=== PATIENT | female | born 1975 | race Caucasian/White ===

== ENCOUNTER 2025-02-14 09:48 | Day surgery (SDC) | payer OTHER ==
[2025-02-12 09:56] VITALS: BP 112/78
[~2025-02-14] VITALS: Ht 177.8 cm; Wt 82.3 kg
[~2025-02-14 09:48] MED LIST: ACYCLOVIR800 MG PO; ADRENOID CAPSU1 EACH PO; AMOXICILLIN500 MG PO; IBLOOD GLUCOSE TEST STRIP 1 EA TEST VI PRN; KLOR-CON M2020 MEQ PO; LACTATED RINGER'S 1,000 ML IV SCH; LIDOCAINE HCL 1% 5 ML SDV INJ ONE; MAGNESIUM OXID400 M1 PO; MIDAZOLAM HCL 5 MG/5 ML VIAL IV PRN; PRILOSEC OTC20 MG PO; VITAMIN D31 ML MISC; ZARXIO300 MCG/0. SUB-Q; [UNRECOGNIZED DRUG - OTHER] PO; fentaNYL citrate 100 MCG/2 ML VIAL IV PRN
[2025-02-14 10:57] LABS: BASOPHILS 0 % (0.1-1.2); BASOPHILS, ABSOLUTE 0 K/uL (0.01-0.08); EOSINOPHILS 0 % (0.7-5.8); EOSINOPHILS, ABSOLUTE 0 K/uL (0.04-0.36); HEMATOCRIT 28.8 % (34.1-44.9); HEMOGLOBIN 9.6 g/dL (11.2-15.7); LYMPHOCYTES 27.3 % (19.3-51.7); LYMPHOCYTES, ABSOLUTE 0.35 K/uL (1.18-3.74); MCH 34.8 PG (25.6-32.2); MCHC 33.3 g/dL (32.2-35.5); MCV 104.3 fL (79.4-94.8); MONOCYTES 35.2 % (4.7-12.5); MONOCYTES, ABSOLUTE 0.45 K/uL (0.24-0.86); NEUTROPHILS 30.5 % (34.0-71.1); NEUTROPHILS, ABSOLUTE 0.39 K/uL (1.56-6.13); RBC 2.76 M/uL (3.93-5.22)
[2025-02-14 11:07] LABS: PLATELET COUNT 11 K/uL (182-369)
[2025-02-14] MEDS ORDERED: DOPTELET20 MG PO (11:07)
[2025-02-14 11:09] VITALS: BP 100/82
[2025-02-14 11:33] LABS: SMEAR REVIEW BLOOD SEE COMMENTS
[2025-02-14] MEDS ORDERED: LIDOCAINE HCL 2% 5 ML SDV ONE (11:39)
[2025-02-14] MEDS ORDERED: propofoL 200 MG/20 ML VIAL ONE (11:39)
--- NOTE | 2025-02-14 12:26 | NUR ---
02/14/25 1226 Carlee Rob 1212 PT LAYING PRONE, RESPONDS TO STIMULI. PT ROLLED OVER ONTO HER BACK ASKING FOR COFFEE AND CRACKERS TOLERATES WELL.
[2025-02-14 12:32] VITALS: BP 104/79
--- NOTE | 2025-02-21 14:18 | PATH ---
[facility] [address] [facility] [place], [place] [address] Signed SPECIMEN(S): A BONE MARROW - LEFT CORE SPECIMEN(S): B BONE MARROW - ASPIRATION SPECIMEN(S): C FLOW CYTOMETRY, BM EDTA CLINICAL HISTORY: CC82.99 (follicular lymphoma unspecified extranodal and solid organ sites). 49-year-old female with relapsed follicular lymphoma and treatment related MDS. Assess MRD follicular lymphoma. Assess MDS. DIAGNOSIS SUMMARY: Peripheral blood - Pancytopenia with macrocytic RBC indices. - Absolute neutrophil count 390/ul. - 1% circulating blasts with atypical monocytes. Bone marrow biopsy and aspiration: - Normocellular marrow, 40%, with 11% myeloblasts. - Trilineage hematopoiesis with trilineage dyspoiesis consistent with myelodysplastic neoplasm with high blasts. - Increased marrow iron stores. No ring sideroblasts are observed. - Atypical B-cell population by flow cytometry. No atypical B-cell population is identified by morphology or immunohistochemistry staining. - See diagnostic comment. DIAGNOSTIC COMMENT: The findings are supportive of a myelodysplastic neoplasm with high blasts (11%). Trilineage dyspoiesis is identified. Approximately 11% myeloblasts are identified. Pending studies include chromosome analysis, FISH panel for MDS, and NGS CMML/MDS panel. A history of follicular lymphoma is noted. Flow cytometry revealed a 6% population of kappa restricted B-cells. This is suspicious for marrow involvement by a B-cell lymphoma. However, no atypical B-cell population is detected by morphology or immunohistochemistry. This apparent discrepancy might be secondary to sampling issues. Evaluation for adenopathy with possible biopsy if present, might be useful. HISTORICAL SUMMARY: 49 yo female with no prior hematology case history in the [employer] database. Reportedly, she has a history of follicular lymphoma and treatment related MDS. This bone marrow is for re-staging. PATIENT NAME: HALLIE VELARDE PATHOLOGY DATE OF : 71 REPORT #: [id number] PHYSICIAN: ERNESTO PATHOLOGY PCP: FREDY WOOD MD REPORT IS CONFIDENTIAL AND NOT TO BE RELEASED WITHOUT AUTHORIZATION [facility] [address] [place], [place] [address] Signed PERIPHERAL BLOOD: HEMOGRAM (02/14/2025): WBC 1.28 K/ul, RBC 2.75 M/ul, HGB 9.6 g/dl, HCT 28.8%, MCV 104.3 fl, MCH 34.8 pg, MCHC 33.3 g/dl, RDW 16.2%, PLT 11 K/ul. Absolute neutrophil count 390/ul. AUTOMATED DIFFERENTIAL COUNT: Blasts 1%, Neutrophils 36.5%, lymphocytes 27.3%, monocytes 35.2%, eosinophils 0%, basophils 0%. The red blood cells are macrocytic and hyperchromic with mild aniso-poikilocytosis. The neutrophils are decreased in number with mild dyspoiesis. Atypical monocytes are present. Lymphocytes are composed of small mature appearing forms. Platelets are decreased in number with no platelet clumping or RBC microangiopathic effect identified. Focal (approximately 1%) blasts are identified. BONE MARROW: ASPIRATE SMEARS/TOUCH IMPRINT: The aspirate smears are adequate for evaluation. Scattered erythroid precursors show adequate maturation with essentially normal morphology. The myeloid precursors show full maturation with unremarkable morphology. There is no increase in blasts. Megakaryocytes are identified with a normal morphology. BONE MARROW DIFFERENTIAL COUNT (300 cells): Blasts 11%. promyelocytes less than 1%, myelocytes 9%, metamyelocytes/bands/segs 13%, erythroid precursors 38%, lymphocytes 13%, monocytes 14%, eosinophils 1%, plasma cells 1%. M:E ratio: 1.2:1 BONE MARROW CORE BIOPSY/ASPIRATE CLOT/CELL BLOCK: The aspirate clot section is primarily composed of blood with rare small marrow spicules. The core biopsy is adequate for evaluation. The core biopsy demonstrates unremarkable trabecular bone. The cellularity is normal for age, estimated at 40%. The erythroid precursors have megaloblastoid maturation with dyspoiesis. The myeloid precursors have a left maturational shift with focal dyspoiesis. Blasts are increased. Megakaryocytes appear decreased in number with dyspoiesis by morphology. No granulomas or foreign malignant cells are detected. SPECIAL STAINS (with adequate controls): - iron (aspirate smear): Increased marrow iron stores are noted by Prussian Blue staining. No ring sideroblasts are identified. - iron (cell block): Increased marrow iron stores are noted in a limited specimen (focal rare marrow spicules). - reticulin (block A1): MF-1 reticulin fibrosis. - PAS (block A1): Decreased megakaryocytes with dyspoiesis. PATIENT NAME: HALLIE VELARDE PATHOLOGY DATE OF : 71 REPORT #: [id number] PHYSICIAN: ERNESTO PATHOLOGY PCP: FREDY WOOD MD REPORT IS CONFIDENTIAL AND NOT TO BE RELEASED WITHOUT AUTHORIZATION [address] [address] Signed IMMUNOHISTOCHEMISTRY STAINS (performed on block A1 with adequate controls). - PAX5: Less than 1% - CD3: 5% with increased marking in lymphoid aggregates. - CD10: Negative in lymphoid aggregate - CD5: Similar to CD3 marking. - CD34: 4% - CD117: 4% FLOW CYTOMETRY: Bone marrow, flow cytometry: - 8.2% myeloblasts. - 6% kappa restricted B-cell population. - See comment. COMMENT: Increased myeloblasts are detected, approximately 8.2% by flow cytometry. These blasts are positive for CD34, CD117, CD13, CD33, and HLA-Dr and are negative for T and B-cell markers as well as negative for CD56 and CD10. In addition, a population (approximately 6%) of kappa restricted B-cells are noted. These B-cells are positive for CD19 and CD10 with no significant expression of CD5, CD20, or CD23. A prior reported history of follicular lymphoma with treatment related MDS is noted. Correlation with bone marrow findings is required. FLOW CYTOMETRY ANALYSIS: FLOW DIFFERENTIAL (% Total CD45 vs. SSC gating): Myeloid 33%; Lymphoid 20%; Monocyte 17%; Dim CD45/Blast: 8.2%. Cell Count: 1.1 x 10*4/uL. POPULATION ANALYSIS: BLASTS: Analysis of the dim CD45 gate demonstrates 8.2% blasts expressing CD45 DIM, CD34 DIM-MOD, CD117 DIM, CD13 DIM, CD33 DIM, CD38 DIM, and HLA-DR MOD while negative for CD56, CD2, CD3, CD4, CD5, CD7, CD10, CD19, CD20, and all other antigens as tested. LYMPHOID CELLS: The lymphocyte gate comprises 20% of total events and includes 61% T-cells with a CD4:CD8 ratio of 0.6:1. A subset T-cell population is detected (10% of lymphocytes, 2% of total events) demonstrating co-expression of CD3 and CD56. A kappa-restricted B-cell population is detected (29% of lymphocytes, 6% of total events) expressing CD45 dimmer MOD, CD19 DIM, CD10 DIM, CD38 DIM, and KAPPA DIM while negative for CD20, CD5, and CD23. The remainders are NK-cells. MYELOID CELLS: The myeloid population comprises 33% of the total events. An immature myeloid population is detected (7.7% of total events) expressing CD45 PATIENT NAME: HALLIE VELARDE PATHOLOGY DATE OF : 71 REPORT #: [id number] PHYSICIAN: ERNESTO MCKENNA PCP: FREDY WOOD MD REPORT IS CONFIDENTIAL AND NOT TO BE RELEASED WITHOUT AUTHORIZATION [facility] [address] [place], [place] [address] Signed DIM, CD117 DIM, CD15 (variable, partial), HLA-DR (variable, partial), CD13 DIM, and CD33 DIM (partial) while negative for CD34, CD14, CD16, and CD56. Decreased SSC, decreased CD10 expression and atypical maturation in the CD13 vs CD16 plot are observed on the overall myeloid population. MONOCYTES: The monocyte population comprises 17% of the total events. Decreased CD14, increased CD15 and some increased CD16 are observed. PLASMA CELLS: 0.1% plasma cells are detected in the screening gate neg-dimCD45/CD38. Plasma cells are CD45 dim and positive for CD19. ANTIBODIES USED: KAPPA, LAMBDA, CD20, CD10, CD19, CD23, CD38, CD16, CD56, CD8, CD5, CD2, CD4, CD7, CD3, CD14, CD33, CD13, HLADR, CD34, CD117, CD15, CD45: TOTAL ANTIBODIES USED: 23. JNB FINAL DIAGNOSIS OF FLOW CYTOMETRY PERFORMED BY: Joshua Maria MD, Feb 16 2025 1:04PM CYTOGENETICS: Chromosome analysis is pending. FISH ANALYSIS: A FISH probe for IgH/BCL2 is pending. A FISH panel for MDS is pending. MOLECULAR / PCR: A [employer] CMML/MDS NGS panel is pending. GROSS DESCRIPTION: Two specimens are received in two containers A. The specimen, labeled and designated "Praneeth Velarde, bone marrow-left core," is received in formalin and consists of a singular portion of love-red bone measuring 1.5 x 0.1 x 0.1 cm. The specimen is submitted for decalcification in [employer] prior to processing. Entirely submitted in cassette (A1). B. The specimen, labeled and designated "Praneeth Velarde, bone marrow-aspiration," is received in formalin and consists of a singular portion of clotted blood measuring 1.3 x 0.9 x 0.5 cm. The specimen is sectioned and submitted entirely in cassettes (B1-B2). AB (under the direct supervision of a pathologist) The Gross Description was prepared using a voice recognition system. The report was reviewed for accuracy; however, sound-alike word errors, addition and/or deletions may occur. If there is any PATIENT NAME: HALLIE VELARDE PATHOLOGY DATE OF : 71 REPORT #: [id number] PHYSICIAN: ERNESTO PATHOLOGY PCP: FREDY WOOD MD REPORT IS CONFIDENTIAL AND NOT TO BE RELEASED WITHOUT AUTHORIZATION [address] [address] Signed question about this report, please contact Client Services. ADDITIONAL NOTES: Immunohistochemical and/or in situ hybridization studies if performed in this case included appropriate positive controls that reacted as expected. This test was developed and its performance characteristics determined by [facility]. It has not been cleared or approved by the U.S. Food and Drug Administration. The FDA has determined that such clearance or approval is not necessary. This test is used for clinical purposes. It should not be regarded as investigational or for research. [facility] is certified under the Clinical Laboratory Improvement Amendments of 1988 (CLIA) as qualified to perform high complexity clinical laboratory testing. In this case, certain antibodies were performed by both immunohistochemistry and flow cytometry analysis because flow cytometry analysis did not fully explain all the light microscopic findings. Immunohistochemistry aided in the analysis. Both methods are deemed medically necessary in this case. This test was developed and its performance characteristics determined by [facility]. It has not been cleared or approved by the US Food and Drug Administration. The FDA does not require this test to go through premarket FDA review. This test is used for clinical purposes. It should not be regarded as investigational or for research. This laboratory is certified under the Clinical Laboratory Improvement Amendments (CLIA) as qualified to perform high complexity clinical laboratory testing. PERFORMING LABORATORY: The technical preparation of flow cytometry was performed by [facility], [address] [place] [id number] (CLIA#:� [id number]). Professional interpretation was performed by [facility] - [address] [id number] (CLIA#: [id number]). Technical component was performed by [facility], [address] [place] [address] (CLIA# [id number]). Professional interpretation was performed by [facility], [address] [place] [id number] (CLIA#: [id number]). IMAGES: PATIENT NAME: HALLIE VELARDE PATHOLOGY DATE OF : 71 REPORT #: [id number] PHYSICIAN: ERNESTO PATHOLOGY PCP: FREDY WOOD MD REPORT IS CONFIDENTIAL AND NOT TO BE RELEASED WITHOUT AUTHORIZATION [address] [place] [address] Signed A: [id number] A: [id number] Diagnostician: Joshua Maria MD Pathologist Electronically Signed 02/21/2025 Copies: ~ PATIENT NAME: HALLIE VELARDE PATHOLOGY DATE OF : 71 REPORT #: [id number] PHYSICIAN: ERNESTO PATHOLOGY PCP: FREDY WOOD MD REPORT IS CONFIDENTIAL AND NOT TO BE RELEASED WITHOUT AUTHORIZATION
== END 2025-02-14 12:45 | disposition home or self-care (01) ==
LOC: DS 09:48
PROVIDERS: ATTEND Specialist
PROC: 07DR0ZX Extraction of Iliac Bone Marrow, Open Approach, Diagnostic (ICD-10-PCS; principal; 2025-02-14 12:00)
DX: D46.9 Myelodysplastic syndrome, unspecified (principal); C82.98 Follicular lymphoma, unspecified, lymph nodes of multiple sites; Z87.891 Personal history of nicotine dependence; Z88.8 Allergy status to other drugs, medicaments and biological substances; Z79.899 Other long term (current) drug therapy
CPT/HCPCS: 01112; 36415; 85025; 85060; J2003; J2704; J7121

== ENCOUNTER 2025-07-09 09:31 | Emergency (ER) | payer OTHER ==
[~2025-07-09] VITALS: Ht 175.3 cm; Wt 84.2 kg
[~2025-07-09 09:31] MED LIST changes: +DOPTELET20 MG PO; -IBLOOD GLUCOSE TEST STRIP 1 EA TEST VI PRN; -LACTATED RINGER'S 1,000 ML IV SCH; -LIDOCAINE HCL 1% 5 ML SDV INJ ONE; -MIDAZOLAM HCL 5 MG/5 ML VIAL IV PRN; -fentaNYL citrate 100 MCG/2 ML VIAL IV PRN
[2025-07-09] MEDS ORDERED: SODIUM CHLORIDE 0.9% 1,000 ML IV PRN ×3 (09:45→15:30)
[2025-07-09] MEDS ORDERED: PROGRAF0.5 MG PO (09:53)
[2025-07-09] MEDS ORDERED: MAG-OXIDE200 MG PO (09:54)
[2025-07-09] MEDS ORDERED: HUMALOG KW200 UNIT/1 SUB-Q (09:54)
[2025-07-09 09:55] LABS: MCH 39.4 PG (25.6-32.2); MCHC 36.1 g/dL (32.2-35.5); MCV 109.1 fL (79.4-94.8); RBC 2.08 M/uL (3.93-5.22)
[2025-07-09] MEDS ORDERED: PILOCARPINE HCL5 MG PO (09:55)
[2025-07-09] MEDS ORDERED: BENZONATATE200 MG PO (09:55)
[2025-07-09] MEDS ORDERED: SUDOGEST30 MG PO (09:55)
[2025-07-09] MEDS ORDERED: POSACONAZOLE100 MG PO (09:55)
[2025-07-09] MEDS ORDERED: PREDNISONE20 MG PO (09:55)
[2025-07-09] MEDS ORDERED: ATIVAN0.5 MG PO (09:56)
[2025-07-09] MEDS ORDERED: PREVYMIS480 MG PO (09:56)
[2025-07-09] MEDS ORDERED: JAKAFI10 MG PO (09:56)
[2025-07-09] MEDS ORDERED: POTASSIUM CHLO20 ME2 PO (09:57)
[2025-07-09] MEDS ORDERED: COMPAZINE25 MG PR (09:58)
[2025-07-09] MEDS ORDERED: LOMOTIL TABLET1 EACH PO (09:58)
[2025-07-09] MEDS ORDERED: BACTRIM 400-801 EACH PO (09:58)
[2025-07-09] MEDS ORDERED: ACYCLOVIR800 MG PO (09:59)
[2025-07-09] MEDS ORDERED: ALLERGY RELIEF10 M5 PO (09:59)
[2025-07-09] MEDS ORDERED: VITAMIN D325 MCG PO (10:00)
[2025-07-09] MEDS ORDERED: TYLENOL325 MG PO (10:00)
[2025-07-09 10:11] LABS: ALT (SGPT) 48.0 U/L (14-59); AST (SGOT) 21.0 U/L (15-37); GLOMERULAR FILTRATION RATE,EST 78.0 mL/min (>60); PROTEIN, TOTAL 5.6 g/dL (6.4-8.2); UREA NITROGEN 22.0 mg/dL (7-18)
[2025-07-09 10:14] LABS: LACTIC ACID, BLOOD 2.0 mmol/L (0.4-2.0)
[2025-07-09] MEDS ORDERED: VANCOMYCIN HCL IV ONE (10:15)
[2025-07-09] MEDS ORDERED: CEFEPIME HCL 2 GM in SODIUM CHLORIDE 0.9% 100 ML IV ONE (10:15)
[2025-07-09] MEDS ORDERED: SODIUM CHLORIDE 0.9% 500 ML IV PRN (10:15)
[2025-07-09] MEDS ORDERED: DEXTROSE 5% IV ONE (10:15)
[2025-07-09] MEDS ORDERED: VANCOMYCIN HCL 2,000 MG in DEXTROSE 5% 500 ML IV ONE (10:30)
[2025-07-09 10:35] LABS: BANDS, MANUAL DIFF 9; BASOPHILS, MANUAL DIFF 0; EOSINOPHILS, MANUAL DIFF 0; LYMPHOCYTES, MANUAL DIFF 12; MONOCYTES, MANUAL DIFF 2; NEUTROPHILS, MANUAL DIFF 77
[2025-07-09 11:38] LABS: INFLUENZA B NAA NEGATIVE (NEGATIVE); RESPIRATORY SYNCYTIAL VIR NAA NEGATIVE (NEGATIVE)
[2025-07-09 11:58] LABS: LACTIC ACID, BLOOD 1.5 mmol/L (0.4-2.0)
[2025-07-09] MEDS ORDERED: PROCHLORPERAZINE EDISYLATE 10 MG/2 ML VIAL IV ONE (12:15)
[2025-07-09] MEDS ORDERED: ACETAMINOPHEN 500 MG TAB PO ONE (12:15)
[2025-07-09 13:03] LABS: BLOOD/HGB, URINE NEGATIVE (Negative); KETONE, URINE NEGATIVE (Negative); LEUK ESTERASE, URINE TRACE (negative); NITRITE, URINE NEGATIVE (negative)
[2025-07-09 13:11] LABS: BACTERIA, URINE NONE SEEN /hpf (negative); CASTS, URINE NONE SEEN \\lpf; CRYSTALS, URINE NONE SEEN (0-1+); EPITHELIAL CELLS, URINE SQUAMOUS 1+ /lpf (0-1+); REFLEX CULTURE, URINE No (No)
[2025-07-09] MEDS ORDERED: DEXAMETHASONE SOD PHOS 10 MG/ML VIAL IV ONE (14:15)
[2025-07-09] MEDS ORDERED: NOREPINEPHRINE BITARTRATE 250 ML IV SCH (14:45)
[2025-07-09] MEDS ORDERED: REMDESIVIR 200 MG in SODIUM CHLORIDE 0.9% 210 ML IV ONE (15:15)
[2025-07-09 16:47] VITALS: BP 128/68
[2025-07-10 16:40] LABS: TACROLIMUS BY HPLC-MS/MS 5.1 ng/mL (())
--- NOTE | 2025-07-11 07:38 | EKG ---
[facility] [facility] [address] [facility] [place] [address] Signed Sinus tachycardia Nonspecific ST and T wave abnormality Abnormal ECG When compared with ECG of 06-FEB-2025 07:11, Vent. rate has increased BY 46 BPM Confirmed by Robyn Melendez DO ([id number]) on 07/11/2025 7:38:21 AM Electronically Signed By: ROBYN MELENDEZ DO 07/11/25 0738 PATIENT NAME: HALLIE VELARDE Electrocardiogram DATE OF : 71 PHYSICIAN: ROBYN MELENDEZ DO REPORT #: [id number] REPORT IS CONFIDENTIAL AND NOT TO BE RELEASED WITHOUT AUTHORIZATION
== END 2025-07-09 16:30 | disposition short-term general hospital (02) ==
LOC: ED 09:31
PROVIDERS: Emergency Medicine
DX: U07.1 COVID-19 (principal); Z88.5 Allergy status to narcotic agent; Z88.8 Allergy status to other drugs, medicaments and biological substances; Z79.4 Long term (current) use of insulin; Z79.899 Other long term (current) drug therapy
CPT/HCPCS: 36415; 71045; 80053; 80197; 81001; 83605; 85025; 87040; 87502; 93005; 93010; 96365; 96367; 96375; 99285-25; A9270; J0248; J0692; J1100; J3373; J7030; J7040; J7050; J7060; U0002